=== PATIENT | male | born 1965 | race Caucasian/White ===

== ENCOUNTER → 2017-02-07 | Outpatient (CLI) | payer OTHER ==
[~2017-02-07] MED LIST: HYDR-4330 PO; HYDR25TA4 PO; METO25TA3 PO; OPTIRAY 320 IV PRN; RXC5 PO
--- NOTE | 2017-02-07 07:29 | DIAGNOSTIC IMAGING REPORT ---
CT CERVICAL SPINE WITH CT DOSE: 361.23 mGy.cm CLINICAL HISTORY: Neck pain and radiculopathy. TECHNIQUE: The patient was scanned following administration of 119 cc Optiray 320. COMPARISON STUDY: None. FINDINGS: The prevertebral soft tissues are normal. No acute fractures or subluxations are visualized. There is no pathologic cervical lymphadenopathy. The lung apices are unremarkable in appearance. There are postsurgical changes of a C6 corpectomy and anterior spinal fusion. There is minor bilateral bony foraminal narrowing at the C5-6 level. There is mild bilateral bony foraminal narrowing at the C6-7 level. IMPRESSION: 1. Postsurgical changes of a partial C6 corpectomy and anterior spinal fusion 2. Mild bony foraminal narrowing the C5-6 and C6-7 levels bilaterally Electronically signed by: Angel Balderrama M.D. 02/07/2017 7:28 AM Dictated Date/Time: 02/07/2017 7:24 AM
== END | disposition home or self-care (01) ==
LOC: C.CTS 06:51
PROVIDERS: ATTEND Orthopaedic Surgery Orthopaedic Surgery of the Spine
DX: M54.12 Radiculopathy, cervical region (principal)

== ENCOUNTER 2025-08-11 09:33 | Inpatient (IN) ==
--- NOTE | 2025-07-06 09:32 | PAT Medication Instructions ---
Medication Instructions Date of Service July 06, 2025 Home Medications metoprolol succinate 100 mg tablet,extended release 24 hr 100 mg PO QAM simvastatin 40 mg tablet 40 mg PO HS gabapentin 600 mg tablet 600 mg PO TID PRN Pain methocarbamol 750 mg tablet 750 mg PO TID PRN Pain omeprazole 20 mg tablet,delayed release 20 mg PO QAM tramadol 50 mg tablet 50 mg PO TID Take morning of surgery With a small sip of water, OTHERWISE NOTHING TO EAT OR DRINK AFTER MIDNIGHT: metoprolol succinate 100 mg tablet,extended release 24 hr 100 mg PO QAM gabapentin 600 mg tablet 600 mg PO TID PRN Pain (if needed) methocarbamol 750 mg tablet 750 mg PO TID PRN Pain (if needed) omeprazole 20 mg tablet,delayed release 20 mg PO QAM tramadol 50 mg tablet 50 mg PO TID Take evening before surgery simvastatin 40 mg tablet 40 mg PO HS gabapentin 600 mg tablet 600 mg PO TID PRN Pain (if needed) methocarbamol 750 mg tablet 750 mg PO TID PRN Pain (if needed) tramadol 50 mg tablet 50 mg PO TID Other Notes If you have any questions please call us at [phone] or [phone] or [phone] or [phone]
--- NOTE | 2025-07-13 11:01 | Anesthesiology Consultation ---
Date of Service July 13, 2025 Assessment & Plan (1) Encounter for pre-operative examination: Chart Review Chart Review: Acceptable Risk for Surgery (pending PCP clearance 07/25/25) and Patient seen in Pre Admission Testing - Awaiting PCP clearance 07/25/25 ([facility]) - please send optimization note re: uncontrolled DM and preop testing to PCP for review - Check BSG AM DOS * Hibiclens wash not yet received/discussed with surgeon's office for patient (patient does not have preop appt). Chlorhexidine wipes were given but patient told to continue to try to follow up with surgeon's office regarding Hibiclens wash and if given/received he is to disregard chlorhexidine wipes. Surgeon's office e-mailed to follow up with patient Per PAT appt on 07/13/25, no recent illness/disease exposures, illness related symptoms, or recent illness/disease positive tests. Will leave to surgeon's discretion if preop Covid testing needed Teaching & Discussion Pre-Anesthesia Teaching/Discussion Notes: Instructed NPO after midnight before surgery,except medications with 15 cc of water. Medication instructions provided according to the PAT guidelines. History Surgery Operation Date: 04/16/25 07:45 Proposed Procedures p L4-L5 Decompression and Fusion with Spinal Cord Monitoring - Reuben Roche DO Operation Date: 08/11/25 07:45 Proposed Procedures p L4-L5 Decompression and Fusion - Reuben Roche DO Height/Weight Height: 5 ft 10 in Weight: 117.8 kg Allergies Allergy/AdvReac Type Severity Reaction Status Date / Time amoxicillin [From Augmentin] AdvReac Unknown Diarrhea Verified 07/02/25 11:03 clavulanic acid AdvReac Unknown Diarrhea Verified 07/02/25 11:03 [From Augmentin] morphine AdvReac Unknown all over Verified 07/02/25 11:03 burning sensation feeling Medications Home Medications Medication Instructions Recorded Confirmed Last Taken metoprolol succinate 100 mg 100 mg PO QAM 10/10/20 07/02/25 Unknown tablet,extended release 24 hr simvastatin 40 mg tablet 40 mg PO HS 10/10/20 07/02/25 Unknown gabapentin 600 mg tablet 600 mg PO TID PRN Pain 07/02/25 07/02/25 Unknown methocarbamol 750 mg tablet 750 mg PO TID PRN Pain 07/02/25 07/02/25 Unknown omeprazole 20 mg tablet,delayed 20 mg PO QAM 07/02/25 07/02/25 Unknown release tramadol 50 mg tablet 50 mg PO TID 07/02/25 07/02/25 Unknown Past Medical History Medical History (Updated 07/13/25 @ 11:55 by Ivon Guzman PA-C) Acid reflux well controlled and stable Cervical stenosis of spine hx sx intervention. good ROM Diabetes Not mentioned at PAT appt but Hgb A1C done at PCP office 07/06/25 was 7.8 (pt seeing PCP for preop 07/25/25) History of COVID-19 x2, 2019 and 2021. no hx hospitalization. no residual symptoms History of hemochromatosis No specialist ; follows with PCP Controlled with diet changes No phlebotomies needed since 2021 HTN (hypertension) Hyperlipidemia Spinal stenosis Exercise / Class Metabolic Activity II 4-5 Yardwork/Stairs/Walk up hill (one flight of stairs - no chest pain or SOB ) Past Family History Family History Mother History of colon cancer Past Surgical History Surgical History History of arthroscopy of left knee History of arthroscopy of left shoulder History of arthroscopy of right knee History of arthroscopy of right shoulder History of colonoscopy History of foot surgery right , tendon repair. Hx of fusion of cervical spine [facility] 12-13 yr ago. mild limitation rom. Past Anesthesia History No Hx of Anesthesia Complications and No Family Hx of Anesthesia Complications History of PONV No Hx of PONV and No Hx of Motion Sickness Social History Smoking Status: Never smoker Do You Dip or Chew Tobacco: No (quit in early ) Alcohol type: beer alcohol intake frequency: a few times a month Hx Substance Use: No substance use type: does not use Review of Systems - Hx of occ snoring- no witnessed apnea- no hx of sleep study Patient denies chest pain, shortness of breath, dyspnea on exertion, cough, wheezing, palpitations. No hx of seizures, stroke, [place]. No hx of blood clots or blood transfusions Physical Exam Vital Signs VITALS BP 142/80 P 60 TEMP 98.1 SP02 96% RESP 16 Constitutional no acute distress ENMT Mouth: no TMJ clicking Thyromental Distance: > or= 3.5 Finger Breadths (3.5) Mallampati Class: III Top partial denture (missing two top front teeth) Missing side teeth and molars Neck + short neck, + limited neck extension (mild) and + facial hair (advised to shave/trim) Respiratory normal respiratory effort; no respiratory distress Auscultation: lungs clear to auscultation bilaterally; no wheezes Cardiovascular Rate/Rhythm: regular rate and regular rhythm Heart Sounds: no murmur Vessels: no carotid bruit Musculoskeletal Spine: + pain with cervical ROM (mild) Extremities: extremities normal to inspection Psychiatric Orientation: alert Lab Results Anesthesia Preop Results Results Anesthesia Widget: WBC 8.09 K/ul (4.8-10.8) 07/13/25 Hgb 13.4 g/dl (14.0-18.0) L 07/13/25 Hct 38.7 % (42.0-52.0) L 07/13/25 Plt 193 K/uL (130-400) 07/13/25 Na 133 mmol/L (136-145) L 07/13/25 K 4.2 mmol/L (3.5-5.1) 07/13/25 Cl 99 mmol/L (98-107) 07/13/25 CO2 29 mmol/L (21-32) 07/13/25 BUN 14 mg/dl (6-23) 07/13/25 Creat 0.95 mg/dl (0.6-1.4) 07/13/25 Glucose Level 312 mg/dl (70-99(Fasting)) H* 07/13/25 PT 10.3 Seconds (9.0-12.0) 07/13/25 PTT 25 Seconds (21-31) 07/13/25 INR 1.0 (0.9-1.1) 07/13/25 Urine Color Yellow 07/13/25 Urine Appearance Clear (Clear) 07/13/25 Urine pH 6.0 (4.5-7.5) 07/13/25 Urine Specific [place] 1.020 (1.000-1.030) 07/13/25 Urine Protein Negative (Negative) 07/13/25 Urine Glucose (UA) 2+ (Negative) H 07/13/25 Urine Ketones Negative (Negative) 07/13/25 Urine Blood Negative (Negative) 07/13/25 Urine Nitrite Negative (Negative) 07/13/25 Urine Bilirubin Negative (Negative) 07/13/25 Urine Urobilinogen Negative (Negative) 07/13/25 Urine Leukocyte Esterase Negative (Negative) 07/13/25 Blood Type A Positive 07/13/25 Antibody Screen NEGATIVE 07/13/25 Testing Laboratory Results Critically elevated glucose (lab called to ordering provider); also emailed surgeon's office to inform- will send optimization note to PCP as well. Patient was also informed and encouraged to follow up with Dr. Roche's office and PCP 07/06/25= HGB A1C 7.8 Electrocardiogram Date: 07/13/25 Findings: + SB @ (55bpm) Nonspecific ST abnormality When compared to EKG from Nov 09, 2015- no significant change was found per cardio Chest X-Ray Date: 07/13/25 Findings: + NAD There is a stable prominent left cardiophrenic angle fat pad. Postsurgical changes are visualized cervical spine. Stress Test Date: 09/02/20 Type: nuclear Obesity and increased GI uptake. Good quality study. Normal gated MPI wall motion and EF There are no significant rest ore stress associated MPI defects. No evidence of myocardial ischemia or infarct Low risk study Lexiscan stress EKG was negative for myocardial ischemia
[2025-08-11] MEDS ORDERED: GLYCOPYRROLATE 0.2 MG/ML VIAL ONE (10:00)
[2025-08-11] MEDS ORDERED: ROCURONIUM BROMIDE 10 MG/ML 5 ML VIAL IV ONE (10:00)
[2025-08-11] MEDS ORDERED: LIDOCAINE 2% 2 ML VIAL/AMP(20MG/ML) INFIL ONE (10:00)
[2025-08-11] MEDS ORDERED: DEXAMETHASONE SOD INJ 4 MG/ML VIAL ONE (10:00)
[2025-08-11] MEDS ORDERED: ONDANSETRON INJ 2 MG/ML 2 ML VIAL ONE (10:00)
[2025-08-11] MEDS ORDERED: PROPOFOL IV EMULSION 10 MG/ML 20 ML VIAL IV ONE (10:00)
[2025-08-11] MEDS ORDERED: MIDAZOLAM HCL 1 MG/ML 2ML VIAL ONE (10:01)
[2025-08-11] MEDS: LR 15ML/HR IV SCH (10:02)
[2025-08-11] MEDS: LR 60ML/HR IV SCH (10:02)
[2025-08-11] MEDS: GABAPENTIN 600 MG DOSE PO SCH (10:03)
[2025-08-11] MEDS: CeleBREX 200 MG CAP PO SCH (10:03)
[2025-08-11] MEDS: ACETAMINOPHEN 500 MG TAB PO SCH (10:03)
[2025-08-11] MEDS ORDERED: ONDANSETRON INJ 2 MG/ML 2 ML VIAL IV PRN ×2 (10:53→15:01)
[2025-08-11] MEDS ORDERED: ATROPINE SULFATE 0.1 MG/ML 10ML SYR IV PRN (10:53)
[2025-08-11] MEDS ORDERED: HYDROmorphone INJ 2 MG/ML SYR/VIAL IV PRN (10:53)
--- NOTE | 2025-08-11 11:25 | History & Physical Bridge Note ---
Date of Service August 11, 2025 History & Physical Bridge Note I have examined the patient, reviewed the History & Physical and in the interval since the performance of the History & Physical I have noted the following changes of clinical significance: no changes noted
--- NOTE | 2025-08-11 11:26 | History & Physical Report ---
Date of Service August 11, 2025 Assessment & Plan (1) Other spondylosis with radiculopathy, lumbar region: Plan: L4-L5 decompression and fusion History of Present Illness Chief Complaint: Back and bilateral leg pain Primary Care Provider: ELOISA Patrick This is a 59-year-old male who presents with chronic persistent back and bilateral leg pain after failing course of nonoperative care is here for surgical invention. Allergies Allergy/AdvReac Type Severity Reaction Status Date / Time amoxicillin [From Augmentin] AdvReac Unknown Diarrhea Verified 08/11/25 09:56 clavulanic acid AdvReac Unknown Diarrhea Verified 08/11/25 09:56 [From Augmentin] morphine AdvReac Unknown all over Verified 08/11/25 09:56 burning sensation feeling Home Medications Medication Instructions Recorded Confirmed Type metoprolol succinate 100 mg 100 mg PO QAM 10/10/20 08/11/25 History tablet,extended release 24 hr simvastatin 40 mg tablet 40 mg PO HS 10/10/20 08/11/25 History gabapentin 600 mg tablet 600 mg PO TID PRN Pain 07/02/25 08/11/25 History methocarbamol 750 mg tablet 750 mg PO TID PRN Pain 07/02/25 08/11/25 History omeprazole 20 mg tablet,delayed 20 mg PO QAM 07/02/25 08/11/25 History release metformin 1,000 mg tablet 1,000 mg PO BID 07/29/25 08/11/25 History Past Med/Surg History Problem List (Updated 08/11/25 @ 11:25 by Reuben Roche DO) Other spondylosis with radiculopathy, lumbar region Encounter for pre-operative examination Cervical stenosis of spinal canal Medical History (Updated 08/11/25 @ 11:25 by Reuben Roche DO) Diabetes Not mentioned at PAT appt but Hgb A1C done at PCP office 07/06/25 was 7.8 (pt seeing PCP for preop 07/25/25) Spinal stenosis Cervical stenosis of spine hx sx intervention. good ROM History of COVID-19 x2, 2020 and 2021. no hx hospitalization. no residual symptoms History of hemochromatosis No specialist ; follows with PCP Controlled with diet changes No phlebotomies needed since 2021 Acid reflux well controlled and stable Hyperlipidemia HTN (hypertension) Surgical History History of foot surgery right , tendon repair. History of arthroscopy of left shoulder History of arthroscopy of right shoulder History of arthroscopy of left knee History of arthroscopy of right knee Hx of fusion of cervical spine [facility] 12-13 yr ago. mild limitation rom. History of colonoscopy Family History Mother History of colon cancer Social History Smoking Status: Never smoker Do You Dip or Chew Tobacco: No (quit in early ); Hx Substance Use: No Preferred Language: Dominican Communication Ability: Effective Leaf Sticker Required: No Beliefs That Will Affect Care: None Current Living Situation: Spouse Feels Safe at Home: Yes Assistive Devices: Glasses and Other Assistive Devices Comment: partial upper Physical Exam Physical Exam: Patient is alert and oriented Heart regular rhythm Lungs clear Results & Data Results & Data Vital Signs (Past 12 Hours) Vital Signs Temp Pulse Resp BP Pulse Ox O2 Del Method 08/11/25 09:54 36.9 C 49 L 18 132/68 99 Room Air
[2025-08-11] MEDS ORDERED: SUGAMMADEX SODIUM 200 MG/2 ML VIAL IV ONE (11:51)
[2025-08-11] MEDS: BUPIVACAINE/EPINEPHRINE 0.25% 1:200,000 30 ML VIAL ONE (12:47)
[2025-08-11] MEDS: ceFAZolin 330 MG/ML 1 GM VIAL ONE ×2 (12:49→12:50)
[2025-08-11] MEDS: FLOSEAL HEMOSTATIC MATRIX 10ML TOP ONE (13:22)
--- NOTE | 2025-08-11 13:33 | Operative Report ---
Post Operative Report Pre & Post Diagnosis Operation Date: 08/11/25 11:05 Pre-Op Diagnosis: #1 lumbar spondylosis with radiculopathy #2 lumbar spondylolisthesis #3 lumbar spinal stenosis Post-Op Diagnosis: Same I identified the patient and participated in the time-out.: Yes Procedure Operation Date: 08/11/25 11:05 Actual Procedures #1 lumbar decompression with bilateral medial facetectomies and foraminotomies L3-L4 L4-L5. #2 posterior spinal fusion L4-L5 #3 placed posterior instrumentation L4-L5 #4 interbody fusion L4-L5 #5 placement of Spira 15 x 26 mm x 2 at L4-5. #6 placement of Koros combined with Proteus bone graft in the posterior lateral gutters and os design in the interbody space. #7 application of versa wrap of the exposed dura. Surgeon Reuben Roche, DO Upholstery Covers Inspector Alee Philip Estimated Blood Loss 250 Findings See Below The patient is 5 foot 10 weighing over 113 kg with a BMI in excess of 35. The patient's body habitus required our deepest retractors and longer instruments in order to perform exposed procedure. He had significant epidural veins adding to the difficulty of decompression. This had at least 25% increased operative time. Recommending modifier 22. Specimens None Indications This is a 59-year-old male who presents publish diagnosis of failed course of nonoperative care is here for surgical invention. Description of Procedure Patient was met with identified informed consent obtained. Patient was then ambrocio en to the operative suite underwent intubation placed in a prone position on the Benjamin table top of the David frame. All bony prominences well-padded eyes inspected to ensure no external pressure placed upon them. This point the lumbar spine was prepped and draped in normal sterile fashion. Sharp dissection with assistance of Bovie cautery performed down to and exposing the lamina transverse processes of L4-L5. from a caudal to cephalad fashion complete laminectomy of L4 was performed including bilateral medial facetectomies and foraminotomies addressing severe neural compression. This followed by partial laminectomy of L3 with bilateral medial facetectomies to address all subarticular stenosis. Pedicle screws were then placed at L4-L5 bilaterally with assistance of fluoroscopy and appropriate sized obinna placed. By way of transforaminal approach and right discectomy of L4-L5 was performed endplates corrected to subcortical bleeding bone and a 15 x 26 mm Spira cage tapped into position. Then proceeded to the left transforaminal region at L4-L5. Again discectomy performed. Endplates corrected to subcortical bleeding bone and a second 15 x 26 mm Spira cage tapped into position. Please note all cages were packed with os design bone graft. The rods were then compressed locked in the final position bilaterally. The transverse processes of L4-5 burred to subcortical bleeding bone. Proteus combined with Koros bone graft was placed in the posterolateral gutters. Burst wrap placed of the exposed dura. 15 round KATHARINA drain inserted. The incision was then closed with 1 Vicryl fascia 2-0 Vicryl subcutaneously and 4 Monocryl for final skin closure. Steri-Strips sterile dressing placed. Patient waken taken to PACU in stable condition. Please note Alee Philip was present of the entire procedure and brought the patient positioning complex portion of the surgery and final skin closure. I attest to the content of the Intraoperative Record and any orders documented therein. Any exceptions are noted below.
[2025-08-11] MEDS ORDERED: HYDROmorphone INJ 2 MG/ML SYR/VIAL ONE (13:41)
--- NOTE | 2025-08-11 14:00 | Fluoroscopy Report ---
FL lumbar spine 2-3V CLINICAL HISTORY: L4-L5 DECOM/FUSION COMPARISON STUDY: None FLUOROSCOPY TIME: 10 seconds FLUOROSCOPY IMAGES: 2 EXPOSURE DOSE: 10 mGy FINDINGS: Fluoroscopy was provided for L4-5 fusion. IMPRESSION: Intraoperative fluoroscopy. ACT 112: Negative or not required by law. Electronically signed by: Felix Alanis M.D. 08/11/2025 1:58 PM
--- NOTE | 2025-08-11 14:32 | Anesthesiology Progress Note ---
Date of Service August 11, 2025 Anesthesia Post Procedure Vital Signs Vital Signs: Temp Pulse Pulse Resp BP Pulse Ox O2 Del Method 08/11/25 14:25 57 L 12 102/55 L 92 Room Air 08/11/25 14:15 36.5 C 65 14 96/60 L 95 Room Air 08/11/25 14:05 63 13 96/60 L 99 Oxymask 08/11/25 13:55 73 12 125/72 96 Oxymask 08/11/25 13:48 36.4 C L 75 12 122/67 97 Oxymask 08/11/25 09:54 36.9 C 49 L 18 132/68 99 Room Air O2 Flow Rate 08/11/25 14:25 08/11/25 14:15 08/11/25 14:05 9 08/11/25 13:55 9 08/11/25 13:48 9 08/11/25 09:54 Pain Intensity Back: Pain Intensity: 4 Transfer of Care Handoff Completed per policy Notes Mental Status: alert / awake / arousable Patient Amnestic to Procedure: Yes Nausea / Vomiting: adequately controlled Pain: adequately controlled Airway Patency, RR, SpO2: stable & adequate BP & HR: stable & adequate Hydration State: stable & adequate Anesthetic Complications: no major complications apparent
[2025-08-11] MEDS ORDERED: GABAPENTIN 600 MG TAB PO PRN (15:01)
[2025-08-11] MEDS ORDERED: DO NOT ADMINISTER PNEUMOCOCCAL VACCINE PRN (15:01)
[2025-08-11] MEDS ORDERED: LORazepam Inj 0.5 MG in SYRINGE 0.25 ML IV PRN (15:01)
[2025-08-11] MEDS ORDERED: PROMETHAZINE 12.5 MG/50.5 ML BAG IV PRN (15:01)
[2025-08-11] MEDS ORDERED: LORazepam 0.5 MG TAB PO PRN (15:01)
[2025-08-11] MEDS ORDERED: ALUMINUM/MAGNESIUM SUSP 30 ML UDC PO PRN (15:01)
[2025-08-11] MEDS ORDERED: ONDANSETRON 4 MG OD TAB PO PRN (15:01)
[2025-08-11] MEDS ORDERED: MAGNESIUM HYDROXIDE SUSP 30 ML UDC PO PRN (15:01)
[2025-08-11] MEDS ORDERED: DO NOT ADMINISTER FLU VACCINE PRN (15:01)
[2025-08-11] MEDS ORDERED: HYDROmorphone INJ 0.5 MG/0.5 ML SYR IV PRN (15:01)
[2025-08-11] MEDS ORDERED: NALOXONE HCL 0.4 MG/1 ML VIAL/CARP IV PRN (15:01)
[2025-08-11] MEDS ORDERED: HYDROmorphone INJ 1 MG/ML SYRINGE IV PRN (15:01)
[2025-08-11] MEDS ORDERED: METOCLOPRAMIDE HCL INJ 5 MG/ML 2 ML VIAL IV PRN (15:01)
[2025-08-11] MEDS ORDERED: ACETAMINOPHEN 1,000 MG/100 ML VIAL IV PRN (15:01)
[2025-08-11] MEDS ORDERED: PHARMACY GLYCEMIC MGMT CONSULT PRN (15:01)
[2025-08-11] MEDS ORDERED: FAMOTIDINE 20 MG TAB PO PRN (15:01)
[2025-08-11] MEDS ORDERED: diphenhydrAMINE Capsule 25 MG CAP PO PRN (15:01)
[2025-08-11] MEDS ORDERED: SOD PHOSPHATE/SOD BIPHOSPHATE ENEMA 132 ML BTL PR PRN (15:01)
[2025-08-11] MEDS: SODIUM CHLORIDE 0.9% 1,000 ML IV SCH (15:20)
--- NOTE | 2025-08-11 16:03 | Consultation ---
Date of Consultation August 11, 2025 Assessment & Plan (1) Other spondylosis with radiculopathy, lumbar region: (2) S/P lumbar fusion: (3) Diabetes: (4) HTN (hypertension): (5) Hyperlipidemia: (6) Acid reflux: Plan 59 year old male with PMH significant for type 2 diabetes, hypertension, hyperlipidemia, hemochromatosis, GERD, and lumbar spondylosis with radiculopathy who underwent L4-L5 decompression and fusion on 08/11/[address] Roche. We have been consulted for post operative medical management. Lumbar spondylosis with radiculopathy POD#0 L4-L5 decompression and fusion on 08/11/[address] Roche Activity level, pain control, DVT prophylaxis, bowel regimen, wound/drain care per primary team Encourage incentive spirometer Monitor CBC in am for acute blood loss anemia (preop Hgb 13.4 and EBL 250cc) PT in am Type 2 diabetes Recently started on metformin by PCP for elevated A1C BSG ACHS and SSI while inpatient Glycemic pharmacy consulted Hypertension BP on soft side post op Hold metoprolol in am Monitor BP and resume when able Hyperlipidemia Continue simvastatin GERD Continue PPI DVT Prophylaxis: SCDs/TEDs per primary team Code Status: FULL CODE PCP: Isha AMIN of [facility] Thank you for this consultation. We will continue to follow this patient with you. A member of the [facility] team is available 15/04 via the role in [employer] - please don't hesitate to reach out with questions. Patient seen in collaboration with Dr. Ulloa. Please see addendum. I spent a total of 60 minutes coordinating, documenting and providing care for this patient excluding time spent in the performance of separately billed services or time spent by another provider/QHP. Supervising Physician Co-Signing Physician Notes Attending addendum: The patient was seen and examined in medical floor in presence of the He has history of spondylosis with radiculopathy and underwent L4-L5 decompression and fusion on 08/11/2025 He has been sitting on a chair with minimal pain at the back but no radiation Denies any other significant symptoms On examination No apparent distress at rest Remains hemodynamically stable Chest was clear to auscultation bilaterally HeartS1-S2, regular Abdomenbenign bowel sound present Extremitiestrace edema bilateral His labs and imaging studies reviewed Status post lumbar decompression and fusion as above and remains stable medically His other significant medical conditions remains stable as above Will monitor his labs and also hemodynamics while in the hospital Agree with assessment plan as outlined above by ELOISA Greenberg and take the full responsibility care in the hospital Total time taken to review the chart, medications, examining the patient and discussion with the patient was around [address] Giuliana Ulloa History of Present Illness Requesting Physician: Reuben Roche DO Reason for Consultation: Post operative medical management Attending Physician: Reuben Roche DO History of Present Illness 59 year old male with PMH significant for type 2 diabetes, hypertension, hyperlipidemia, hemochromatosis, GERD, and lumbar spondylosis with radiculopathy who underwent L4-L5 decompression and fusion on 08/11/[address] Roche. We have been consulted for post operative medical management. Patient seen in inpatient room post operatively. Reports some pain in low back. Has feeling in both of his legs which he is excited about as he has not been able to feel his legs in two years. Reports preoperative bilateral leg pain and weakness that was unresponsive to meds and two injections which prompted surgery. Denies dizziness, chest pain, SOB, abdominal pain, N/V. Has not passed gas yet but feels like his bowels are moving. Tolerated getting up to the chair well with assistance from nursing. Allergies Allergy/AdvReac Type Severity Reaction Status Date / Time amoxicillin [From Augmentin] AdvReac Unknown Diarrhea Verified 08/11/25 09:56 clavulanic acid AdvReac Unknown Diarrhea Verified 08/11/25 09:56 [From Augmentin] morphine AdvReac Unknown all over Verified 08/11/25 09:56 burning sensation feeling Home Medications Medication Instructions Recorded Confirmed Type metoprolol succinate 100 mg 100 mg PO QAM 10/10/20 08/11/25 History tablet,extended release 24 hr simvastatin 40 mg tablet 40 mg PO HS 10/10/20 08/11/25 History gabapentin 600 mg tablet 600 mg PO TID PRN Pain 07/02/25 08/11/25 History methocarbamol 750 mg tablet 750 mg PO TID PRN Pain 07/02/25 08/11/25 History omeprazole 20 mg tablet,delayed 20 mg PO QAM 07/02/25 08/11/25 History release metformin 1,000 mg tablet 1,000 mg PO BID 07/29/25 08/11/25 History Patient History Medical History Diabetes Not mentioned at PAT appt but Hgb A1C done at PCP office 07/06/25 was 7.8 (pt seeing PCP for preop 07/25/25) Spinal stenosis Cervical stenosis of spine hx sx intervention. good ROM History of COVID-19 x2, 2019 and 2021. no hx hospitalization. no residual symptoms History of hemochromatosis No specialist ; follows with PCP Controlled with diet changes No phlebotomies needed since 2021 Acid reflux well controlled and stable Hyperlipidemia HTN (hypertension) Surgical History (Updated 08/11/25 @ 16:16 by ELOISA Motley) History of foot surgery right , tendon repair. History of arthroscopy of left shoulder History of arthroscopy of right shoulder History of arthroscopy of left knee History of arthroscopy of right knee Hx of fusion of cervical spine [facility] 12-13 yr ago. mild limitation rom. History of colonoscopy Family History Mother History of colon cancer Social History Smoking Status: Never smoker Do You Dip or Chew Tobacco: No (quit in early ); Hx Substance Use: No Preferred Language: Setswana Communication Ability: Effective Nurseryperson Required: No Beliefs That Will Affect Care: None Current Living Situation: Spouse Feels Safe at Home: Yes Assistive Devices: Glasses and Other Assistive Devices Comment: partial upper Review of Systems Review of Systems: All systems reviewed & are unremarkable except as noted in HPI & below Physical Exam Physical Exam: General/Psych: WD/WN, sitting up in bed, NAD, conversing easily Head: normocephalic, atraumatic Eyes: normal inspection, PERRL, conjunctivae pink ENT: external ear and nose normal, oropharynx normal Neck: normal visual inspection, trachea midline Respiratory: normal respiratory effort, lungs clear to auscultation, no wheeze/rales/rhonchi, no accessory muscle use Cardiovascular: regular rate and rhythm, no murmur/rub/gallop Extremities: no cyanosis or clubbing, normal peripheral pulses, no BLE edema Abdomen/GI: hypoactive bowel sounds, soft, nontender Neurologic/MSK: A+Ox3, motor strength 5/5, moves all extremities, sensation intact BLE Skin: no rashes, normal color, warm and dry, island dressing c/d/i, KATHARINA drain with sanguinous output Results & Data Vital Signs (Past 12 Hours) Vital Signs Temp Pulse Pulse Resp BP Pulse Ox O2 Del Method 08/11/25 15:29 36.3 C L 51 L 18 115/55 L 92 Room Air 08/11/25 15:01 36.6 C 54 L 18 98/55 L 94 Room Air 08/11/25 14:45 53 L 17 98/62 L 92 Room Air 08/11/25 14:35 54 L 12 100/64 90 Room Air 08/11/25 14:25 57 L 12 102/55 L 92 Room Air 08/11/25 14:15 36.5 C 65 14 96/60 L 95 Room Air 08/11/25 14:05 63 13 96/60 L 99 Oxymask 08/11/25 13:55 73 12 125/72 96 Oxymask 08/11/25 13:48 36.4 C L 75 12 122/67 97 Oxymask 08/11/25 09:54 36.9 C 49 L 18 132/68 99 Room Air O2 Flow Rate 08/11/25 15:29 08/11/25 15:01 08/11/25 14:45 08/11/25 14:35 08/11/25 14:25 08/11/25 14:15 08/11/25 14:05 9 08/11/25 13:55 9 08/11/25 13:48 9 08/11/25 09:54 Medications Administered Current Inpatient Medications Acetaminophen (Acetaminophen 500 Mg Tab) 1,000 mg PO PREOP GIO Stop: 08/11/25 18:00 Last Admin: 08/11/25 10:03 Dose: 1,000 mg Acetaminophen (Acetaminophen 500 Mg Tab) 1,000 mg PO Q8H PRN PRN Reason: MILD Pain (1,2,3) & Pre PT Stop: 09/10/25 15:00 Al Hydrox/Mg Hydrox/Simethicone (Aluminum/Magnesium Susp 30 Ml Udc) 30 ml PO Q6H PRN PRN Reason: Dyspepsia Stop: 09/10/25 15:00 Atropine Sulfate (Atropine Sulfate 0.1 Mg/Ml 10ml Syr) 0.5 mg IV Q1M PRN PRN Reason: PACU Use-HR<40 &/or Bradycardi Stop: 08/11/25 18:53 Bisacodyl (Bisacodyl 10 Mg Supp) 10 mg IL DAILY PRN PRN Reason: Constipation Stop: 09/10/25 15:00 Celecoxib (Celebrex 200 Mg Cap) 200 mg PO PREOP GIO Stop: 08/11/25 18:00 Last Admin: 08/11/25 10:03 Dose: 200 mg Dextrose (Dextrose 50% 50 Ml Syringe) 25 - 50 ml IV UD PRN; Protocol PRN Reason: Hypoglycemia Protocol Stop: 09/10/25 16:14 Diphenhydramine HCl (Diphenhydramine Capsule 25 Mg Cap) 25 mg PO Q6H PRN PRN Reason: Allergic Rhinitis/Insomnia Stop: 09/10/25 15:00 Ephedrine Sulfate (Ephedrine Sulfate 50 Mg/Ml Amp) 5 mg IV Q5M PRN PRN Reason: PACU Use Only-SBP<90 mmHg Stop: 08/11/25 18:53 Famotidine (Famotidine 20 Mg Tab) 20 mg PO Q12H PRN PRN Reason: Dyspepsia Stop: 09/10/25 15:00 Fentanyl Citrate (Fentanyl Citrate Pf 100 Mcg/2 Ml Vial) 50 mcg IV Q5M PRN PRN Reason: PACU Use Only-Pain Stop: 08/11/25 18:53 Gabapentin (Gabapentin 600 Mg Dose) 600 mg PO PREOP GIO Stop: 08/11/25 18:00 Last Admin: 08/11/25 10:03 Dose: 600 mg Gabapentin (Gabapentin 600 Mg Tab) 600 mg PO TID PRN PRN Reason: Neuropathic Pain Stop: 09/10/25 15:00 Glucagon (Glucagon For Inj 1 Mg Vial) 1 mg SQ UD PRN; Protocol PRN Reason: Hypoglycemia Protocol Stop: 09/10/25 16:14 Glucose (Glucose 40% Gel 15 Gm Tube) 15 - 30 gm PO UD PRN; Protocol PRN Reason: Hypoglycemia Protocol Stop: 09/10/25 16:14 Glucose (Glucose 10 Tab/Tube) 4 - 8 tab PO UD PRN; Protocol PRN Reason: Hypoglycemia Protocol Stop: 09/10/25 16:14 Hydromorphone HCl (Hydromorphone Inj 2 Mg/Ml Syr/Vial) 0.5 mg IV Q5M PRN PRN Reason: PACU Use Only-Pain Stop: 08/11/25 18:53 Hydromorphone HCl (Hydromorphone Inj 0.5 Mg/0.5 Ml Syr) 0.5 mg IV Q3H PRN PRN Reason: MODERATE Pain(4,5,6)/Pre PT Stop: 08/25/25 15:00 Hydromorphone HCl (Hydromorphone Inj 1 Mg/Ml Syringe) 1 mg IV Q3H PRN PRN Reason: SEVERE Pain (7,8,9,10) Stop: 08/25/25 15:00 Hydroxyzine HCl (Hydroxyzine Hcl 25 Mg Tab) 25 mg PO Q8H PRN PRN Reason: Anxiety Stop: 09/10/25 15:00 Lactated Ringer's (Lr) 1,000 mls @ 60 mls/hr IV .[id number] GIO Stop: 08/11/25 22:39 Last Admin: 08/11/25 10:02 Dose: Not Given Cefazolin Sodium (Ancef 2000mg) 2,000 mg in 15 mls @ 3.75 mls/min IV PREOP GIO; Protocol Stop: 08/11/25 18:00 Lactated Ringer's (Lr) 1,000 mls @ 15 mls/hr IV .Q24H GIO Stop: 08/12/25 05:59 Last Infusion: 08/11/25 11:44 Dose: Infused Sodium Chloride (Nss) 1,000 mls @ 150 mls/hr IV .Q6H40M GIO Stop: 08/14/25 15:00 Last Admin: 08/11/25 15:20 Dose: 150 mls/hr Acetaminophen (Ofirmev) 1,000 mg in 100 mls @ 400 mls/hr IV Q8H PRN PRN Reason: MILD Pain (1,2,3) & Pre PT Stop: 08/12/25 15:02 Cefazolin Sodium (Ancef 2000mg) 2,000 mg in 15 mls @ 3.75 mls/min IV Q8H GIO Stop: 08/14/25 12:03 Promethazine HCl (Phenergan) 12.5 mg in 50.5 mls @ 202 mls/hr IV Q6H PRN PRN Reason: Nausea And Vomiting Stop: 09/10/25 15:00 Lorazepam 0.5 mg/ Syringe 0.5 mls @ 2 mls/min IV Q8H PRN PRN Reason: Sedation/Anxiety Stop: 09/10/25 15:00 Dexamethasone 6 mg/ Syringe 1.5 mls @ 1 mls/min IV DAILY GIO Stop: 08/14/25 09:02 Influenza Virus Vaccine Quadrival (Do Not Administer Flu Vaccine) 1 each N/A PRN PRN PRN Reason: Notification Stop: 09/10/25 15:00 Insulin Aspart (Insulin Aspart Per Unit Charge) 0 units SC ACHS GIO Stop: 09/10/25 16:29 Lorazepam (Lorazepam 0.5 Mg Tab) 0.5 mg PO Q8H PRN PRN Reason: Sedation/Anxiety Stop: 09/10/25 15:00 Magnesium Hydroxide (Magnesium Hydroxide Susp 30 Ml Udc) 30 ml PO Q24H PRN PRN Reason: Constipation Stop: 09/10/25 15:00 Metoclopramide HCl (Metoclopramide Hcl Inj 5 Mg/Ml 2 Ml Vial) 10 mg IV Q6H PRN PRN Reason: Nausea &/or Vomiting Stop: 09/10/25 15:00 Metoprolol Succinate (Metoprolol Succ 50mg Ext Rel Tab) 100 mg PO QAM [facility] Stop: 09/11/25 08:59 Miscellaneous (Carbohydrates For Hypoglycemia ) 15 - 30 gm PO UD PRN PRN Reason: Hypoglycemia Treatment Stop: 09/10/25 16:14 Miscellaneous Information (Pharmacy Glycemic Mgmt Consult) 1 each N/A UD PRN PRN Reason: Consult Stop: 09/10/25 15:00 Naloxone HCl (Naloxone Hcl 0.4 Mg/1 Ml Vial/Carp) 0.1 mg IV Q5M PRN PRN Reason: Oversedation/Resp depression Stop: 09/10/25 15:00 Ondansetron HCl (Ondansetron Inj 2 Mg/Ml 2 Ml Vial) 4 mg IV ONCE PRN PRN Reason: PACU Use Only-Nausea/Vomiting Stop: 08/11/25 18:53 Ondansetron HCl (Ondansetron Inj 2 Mg/Ml 2 Ml Vial) 4 mg IV Q6H PRN PRN Reason: Nausea &/or Vomiting Stop: 09/10/25 15:00 Ondansetron HCl (Ondansetron 4 Mg Od Tab) 4 mg PO Q6H PRN PRN Reason: Nausea Stop: 09/10/25 15:00 Oxycodone HCl (Oxycodone Hcl Ir 5 Mg Tab (Immediate Release)) 5 - 10 mg PO Q4H PRN PRN Reason: MOD/SEV Pain & Pre PT Stop: 08/25/25 15:00 Last Admin: 08/11/25 15:39 Dose: 10 mg Pantoprazole Sodium (Pantoprazole 40 Mg Tab) 40 mg PO QAM [facility] Stop: 09/11/25 08:59 Pneumococcal Polyvalent Vaccine (Do Not Administer Pneumococcal Vaccine) 1 each N/A PRN PRN PRN Reason: Notification Stop: 09/10/25 15:00 Polyethylene Glycol (Polyethylene (Miralax) 17 Gm Pack) 17 gm PO Q6 GIO Stop: 09/11/25 05:59 Senna/Docusate Sodium (Docusate Sodium/Senna 50/8.6mg Tab) 2 tab PO HS GIO Stop: 09/10/25 20:59 Simvastatin (Simvastatin 40 Mg Tab) 40 mg PO HS GIO Stop: 09/10/25 20:59 Sodium Biphosphate/Sodium Phosphate (Sod Phosphate/Sod Biphosphate Enema 132 Ml Btl) 132 ml IL ONE PRN PRN Reason: Constipation Stop: 09/10/25 15:00 Tramadol HCl (Tramadol Hcl 50 Mg Tablet) 50 - 100 mg PO Q4H PRN PRN Reason: MOD/SEV Pain & Pre PT Stop: 09/10/25 15:00
[2025-08-11] MEDS ORDERED: DEXTROSE 50% 50 ML SYRINGE IV PRN (16:15)
[2025-08-11] MEDS ORDERED: GLUCAGON FOR INJ 1 MG VIAL SQ PRN (16:15)
[2025-08-11] MEDS ORDERED: GLUCOSE 10 TAB/TUBE PO PRN (16:15)
[2025-08-11] MEDS ORDERED: CARBOHYDRATES FOR HYPOGLYCEMIA PO PRN (16:15)
[2025-08-11] MEDS ORDERED: GLUCOSE 40% GEL 15 GM TUBE PO PRN (16:15)
[2025-08-11] MEDS: INSULIN ASPART PER UNIT CHARGE SC SCH (17:23)
[2025-08-11] MEDS: DOCUSATE SODIUM/SENNA 50/8.6MG TAB PO SCH (20:17)
[2025-08-11] MEDS: SIMVASTATIN 40 MG TAB PO SCH (20:17)
[2025-08-11] MEDS: LANTUS PER UNIT CHARGE SC ONE (21:26)
[2025-08-12] MEDS: POLYETHYLENE (MIRALAX) 17 GM PACK PO SCH (05:31)
[2025-08-12 06:43] LABS: Hematocrit (blood only) 36.0 % (42.0-52.0); Hemoglobin 12.4 g/dL (14.0-18.0); Immature Granulocytes # (auto) 0.05 K/uL (0.01-0.20); Immature Granulocytes % (auto) 0.4 %; Mean Corpuscular Hemoglobin 29.9 pg (25.0-34.0); Mean Corpuscular Volume 86.7 fL (80.0-100.0); Platelet Count 214 K/uL (130-400); RDW Standard Deviation 37.7 fL (36.4-46.3); Red Blood Count 4.15 M/uL (4.70-6.10); White Blood Count 13.05 K/ul (4.8-10.8)
[2025-08-12 07:13] LABS: Anion Gap 8.0 (3-11); Blood Urea Nitrogen 14.0 mg/dl (6-23); Calcium 9.0 mg/dl (8.6-10.3); Carbon Dioxide 26.0 mmol/L (21-32); Chloride 102.0 mmol/L (98-107); Creatinine Clr Calc Pharmacy 117.9 ml/min; Glucose 171.0 mg/dl (70-99(Fasting)); Potassium 4.1 mmol/L (3.5-5.1); Sodium 136.0 mmol/L (136-145)
[2025-08-12 07:52] LABS: Hemoglobin A1C 8.1 % (4.5-5.6)
--- NOTE | 2025-08-12 08:16 | Orthopedic Progress Note ---
Date of Service August 12, 2025 Assessment & Plan (1) Other spondylosis with radiculopathy, lumbar region: Plan: Sergey is postoperative day 1 status post L4-5 decompression and fusion. He is can start physical therapy today. Maintain KATHARINA drain. DVT prophylaxis is in the form of teds and SCDs. Continue with pain control. Anticipate discharge home within the next 24 to 48 hours. Admission and Anticipated Discharge Date Admission Date: August 11, 2025 Subjective Sergey is postoperative day 1 status post L4-5 decompression and fusion. He had an uneventful evening. Leg pain has resolved. He is up and ambulatory around the hallways in the room. He feels great. KATHARINA drain output last shift is 60 cc. H&H this morning are 12.4 and 36.0 respectively. No other complaints. Review of Systems Review of Systems: All systems reviewed & are unremarkable except as noted in HPI & below Physical Exam Physical Exam: He is sitting in a chair eating breakfast in no acute distress Alert and oriented x 3 Lumbar dressing is clean dry and intact with functioning KATHARINA drain Strength intact bilateral lower extremities Results & Data Vital Signs (Past 12 Hours) Vital Signs Temp Pulse Resp BP Pulse Ox O2 Del Method 08/12/25 03:00 36.9 C 56 L 18 116/64 94 Room Air 08/11/25 23:00 36.7 C 65 18 119/67 94 Room Air
[2025-08-12] MEDS: ACETAMINOPHEN 500 MG TAB PO PRN (08:28)
[2025-08-12] MEDS: dexAMETHasone 6 MG in SYRINGE 0 ML IV SCH (08:29)
[2025-08-12] MEDS ORDERED: METOPROLOL SUCC 50MG EXT REL TAB PO SCH (09:00)
[2025-08-12] MEDS: LANTUS PER UNIT CHARGE SC SCH (12:12)
--- NOTE | 2025-08-12 12:27 | Hospitalist Progress Note ---
Date of Service August 12, 2025 Assessment & Plan (1) Other spondylosis with radiculopathy, lumbar region: (2) S/P lumbar fusion: (3) Diabetes: (4) HTN (hypertension): (5) Hyperlipidemia: (6) Acid reflux: Plan 59 year old male with PMH significant for type 2 diabetes, hypertension, hyperlipidemia, hemochromatosis, GERD, and lumbar spondylosis with radiculopathy who underwent L4-L5 decompression and fusion on 08/11/[address] Roche. We have been consulted for post operative medical management. Lumbar spondylosis with radiculopathy L4-L5 decompression and fusion on 08/11/[address] Roche Activity level, pain control, DVT prophylaxis, bowel regimen, wound/drain care per primary team Encourage incentive spirometer Hemoglobin of 12.4 postoperatively Type 2 diabetes Recently started on metformin by PCP for elevated A1C BSG ACHS and SSI while inpatient Glycemic pharmacy consulted Hypertension BP on soft side post op continue to Hold metoprolol Monitor BP and resume when able Hyperlipidemia Continue simvastatin GERD Continue PPI DVT Prophylaxis: SCDs/TEDs per primary team Code Status: FULL CODE PCP: Isha [facility]IN of [facility] Please note the above document was generated using voice recognition software. It may contain grammatical, syntax or spelling errors. Any formal questions or concerns about the content, text or information contained within the body of this dictation should be directly addressed to the provider for clarification Admission and Anticipated Discharge Date Admission Date: August 11, 2025 Subjective Patient seen and examined at bedside. He is sitting up on a chair comfortably; not in distress. He denies any pain or discomfort at this time Tolerating diet well Review of Systems Review of Systems: All systems reviewed & are unremarkable except as noted in Subjective Physical Exam Physical Exam: General/Psych: WD/WN, sitting up in bed, NAD, conversing easily Respiratory: normal respiratory effort, lungs clear to auscultation, no wheeze/rales/rhonchi, no accessory muscle use Cardiovascular: regular rate and rhythm, no murmur/rub/gallop Extremities: no cyanosis or clubbing, normal peripheral pulses, no BLE edema Abdomen/GI: hypoactive bowel sounds, soft, nontender Neurologic/MSK: A+Ox3, motor strength 5/5, moves all extremities, sensation intact BLE Skin: Dressing in place in the back; no overlying soakage. Results & Data Results & Data Vital Signs (Past 12 Hours) Vital Signs Temp Pulse Resp BP Pulse Ox O2 Del Method 08/12/25 11:07 36.5 C 55 L 16 116/65 95 Room Air 08/12/25 07:35 36.5 C 52 L 16 110/63 96 Room Air 08/12/25 03:00 36.9 C 56 L 18 116/64 94 Room Air
--- NOTE | 2025-08-12 14:53 | Pharmacy Report ---
Pharmacy Glycemic Short Note 2 - Date of Service August 12, 2025 - Glycemic Short BSG Results (Last 24 hours): 08/11/25 08/11/25 08/12/25 16:48 20:23 05:48 Glucose 171 H POC Glucose 269 H 287 H 08/12/25 08/12/25 07:32 11:28 Glucose POC Glucose 182 H 168 H OUTPATIENT ANTIDIABETIC REGIMEN: * metformin 1000mg po BID * Jardiance 25mg po daily HbA1c: 8.1% on 08/12/25 ASSESSMENT: * ROHAN is a 59 year old male who was admitted yesterday for spinal decompression and fusion. Pharmacy was consulted for glycemic management postop. * Preop BSG was 162mg/dL and postop was 269mg/dL. He did receive 8mg iv dexamethasone in the OR. Lantus 20 units SQ x 1 was given and a weight based bolus insulin regimen with a stress of 2 was started. * Fasting BSG was 182mg/dL and dexamethasone 6mg iv daily X 3 days was ordered to start this morning so Lantus 10 units SQ daily was ordered. * Will continue current bolus insulin regimen without change for now. PLAN FOR INPATIENT GLYCEMIC CONTROL: * Hold outpatient oral diabetes medications * Basal insulin * Lantus 20 units SQ x 1 post op 08/11, then Lantus 10 units SQ daily. * Bolus insulin * NovoLog per scale ACHS or Q6hrs while NPO * Goal Range: Low 110 mg/dL - High 140 mg/dL * Correction Factor: 20 mg/dL/unit * Nutritional / Prandial insulin per carb ratio of 1 unit per 7 grams CHO consumed
[2025-08-13 07:43] VITALS: BP 119/74; RESP 16; TEMP 97.7; O2SAT 97
[2025-08-13] MEDS: LANTUS PER UNIT CHARGE SC SCH (08:58)
--- NOTE | 2025-08-13 10:45 | Discharge Summary ---
Date of Service August 13, 2025 Admission HPI Per Admitting Provider This is a 59-year-old male who presents with chronic persistent back and bilateral leg pain after failing course of nonoperative care is here for surgical invention. Principal Diagnosis Lumbar spondylosis with radiculopathy Discharge Data Allergies Allergy/AdvReac Type Severity Reaction Status Date / Time amoxicillin [From Augmentin] AdvReac Unknown Diarrhea Verified 08/11/25 09:56 clavulanic acid AdvReac Unknown Diarrhea Verified 08/11/25 09:56 [From Augmentin] morphine AdvReac Unknown all over Verified 08/11/25 09:56 burning sensation feeling Consultations 08/11/25 15:01 Consult Hospitalist Routine Procedures Performed Operation Date: 08/11/25 11:05 Actual Procedures p L4-L5 Decompression and Fusion(Not Applicable) - Reuben Roche DO Ordered Studies 08/11/25 [place] lumbar spine 2-3V Routine Hospital Course (1) Other spondylosis with radiculopathy, lumbar region: Patient with lumbar decompression fusion tolerated this well was taken to orthopedic for postoperative. Postop he progressed appropriate. Marked improvement of his back and leg symptoms. Pain controlled. Excellent strength testing. KATHARINA drain decreasing. Subsidy discharged home. Discharge orders and instructions from the chart for further review. Total Time Total Time Spent Total Time Spent (In Minutes): 20 minutes Discharge Plan Discharge Items Patient Disposition: Home - Self-Care Reason For Visit: Single-Level Lumbosacral Spondylosis with Radiculo Discharge Diagnosis: Lumbar spondylosis with radiculopathy Activity: As commented below Non-emergency contact: Primary Care Provider Call non-emergency contact if: you have any medication questions Follow-up/Referrals: Isha Prieto CRNP [Primary Care Provider] - Diet: Regular Addtl Attending Provider Instructions: ACTIVITY RECOMMENDATIONS: SELF CARE INSTRUCTIONS AFTER THORACIC/LUMBAR FUSIONS 1. You may walk to your tolerance. It is good exercise for your legs and back. Expect some back and intermittent leg aches and pains. 2. You may perform "counter-top" level activities (make a sandwich, tommy with a project, etc.). 3. No bending or lifting of more than 10 pounds or back twisting of any nature (roll like a log when turning in bed). 4. You may ride in a car for 20-30 minutes at a time. No driving until after your first visit with your doctor. 5. Frequent changes of position and restricting sitting to 30 minutes at a time will help limit the amount of back spasms and stiffness you may experience. 6. You may discontinue the use of ambulatory aids (cane, crutches, etc.) once your strength and confidence allow. 7. You may epic trainer the shower and let water strike your incision when you arrive home at least once daily. Do not take a tub bath, sit in a hot tub or go into a swimming pool until after your first recheck in the office. 8. You may resume previous diet. SPECIAL CARE INSTRUCTIONS: VERY IMPORTANT TO READ AND REVIEW A. Your surgical incision has been closed with a cosmetic suture under the skin that will dissolve in about 6 weeks. In 14 days, you can use a pair of clean scissors and cut the suture that is left outside of the skin at the ends of your incision. 1. The small skin tapes can be removed 7 days after surgery if they have not fallen off by that point. 2. You may keep the wound open to air as much as possible to promote healing after post-op day number 5 unless told otherwise by your doctor. 3. If you think the wound looks like it is becoming infected (redness or worsening drainage) and/or you are experiencing fever, chill or worsening back pain and muscle spasms, contact the office so that we may evaluate you as soon as possible. B. Complications are uncommon, but please contact us if you have any signs or symptoms of: 1. wound infection (fever higher than 102.5 degrees F, redness, separation of wound, drainage, or increasing pain from the incision) 2. blood clots in legs (pain, swelling, redness and warmth in legs) 3. urinary tract infection (fever higher than 102.5 degrees F, burning upon urination or increased frequency of urination) 4. nerve problems (inability to walk on your toes or heels, numbness, loss of bowel or bladder control) 5. any other symptoms that concern you C. Please call the office at if you have any concerns or questions about your operation or recovery. D. No smoking! Smoking drastically decreases the chance of a solid fusion. E. Do not take any anti-inflammatory medications (Indocin, Advil, Motrin, Aspirin, Naprosyn, etc.) as these may inhibit the chance of a solid fusion. Tylenol is okay to take for pain. MANAGING PAIN AFTER SPINAL SURGERY 1. Narcotic medication is intended for short-term use and will be provided for surgical pain. Surgical pain usually lasts for a period of 4-6 weeks. Narcotic medication includes Percocet, Vicodin, Darvocet, Tylenol #3 or Lortab. 2. Longer-term pain is more appropriately treated with non-narcotic medication such as Tylenol ES. 3. Muscle spasm is not appropriately treated with narcotics. Muscle relaxers such as Soma, Flexeril or Skelaxin can be used along with Tylenol ES. 4. Remember that we all live with some "aches and pains". This is not unusual or uncommon after an injury or as we get older. a. Back pain is expected and may include muscle spasms for [address] surgery[address] The pain should gradually improve. If the pain worsens for no apparent reason, please contact the office. b. Intermittent leg pain may also be experienced and should not be concerned about unless it worsens for no apparent reason. If so, please contact the office. 5. We will provide appropriate medication within the normal guidelines of their prescribed use. We will also be very cautious and aware of potential abuse and extended duration of patients' medication needs. a. Pain medications are for your comfort and to assist with sleep and rest so that the tissue can heal. They are not provided in order to return to normal activity and should not be used through the day. To do so or worsening pain at night can result from ongoing tissue damage and development of tolerance to the prescribed medicine. 6. Please allow 2-3 days to process refills. Prescriptions will not be mailed but must be picked up at the office. FOLLOW UP VISIT: Keep your scheduled follow-up appointment. Any questions, please call the office at . Pending Studies at Discharge: No Stand-Alone Forms: My [employer], Smoking Cessation Medications and DC Order Prescriptions: New tramadol 50 mg tablet 50 mg PO Q6H PRN (Reason: pain, moderate) Qty: 30 0RF oxycodone 5 mg tablet 5 mg PO Q6H PRN (Reason: pain) Qty: 30 0RF Rx Instructions: Oxycodone for severe pain tramadol for moderate pain Continued metoprolol succinate 100 mg tablet extended release 24 hr 100 mg PO QAM simvastatin 40 mg tablet 40 mg PO HS omeprazole 20 mg Tablet,Delayed Release (Dr/Ec) 20 mg PO QAM gabapentin 600 mg Tablet 600 mg PO TID PRN (Reason: Pain) methocarbamol 750 mg Tablet 750 mg PO TID PRN (Reason: Pain) metformin 1,000 mg Tablet 1,000 mg PO BID Discharge Orders: Discharge Order (Routine); Ordered 08/13/25 Ordered By: Reuben Castro/Other Patient Handouts: Managing Type 2 Diabetes Admission Data Admit Date/Time: 08/11/25 13:36 Attending Provider: Reuben Roche Admit Provider: Reuben Roche Primary Care Provider: Isha Prieto Other Providers: Rhonda Ulloa
--- NOTE | 2025-08-13 11:22 | Hospitalist Progress Note ---
Date of Service August 13, 2025 Assessment & Plan (1) Other spondylosis with radiculopathy, lumbar region: (2) S/P lumbar fusion: (3) Diabetes: (4) HTN (hypertension): (5) Hyperlipidemia: (6) Acid reflux: Plan 59 year old male with PMH significant for type 2 diabetes, hypertension, hyperlipidemia, hemochromatosis, GERD, and lumbar spondylosis with radiculopathy who underwent L4-L5 decompression and fusion on 08/11/[address] Roche. We have been consulted for post operative medical management. Lumbar spondylosis with radiculopathy L4-L5 decompression and fusion on 08/11/[address] Roche Activity level, pain control, DVT prophylaxis, bowel regimen, wound/drain care per primary team Encourage incentive spirometer Hemoglobin of 12.4 postoperatively Type 2 diabetes Recently started on metformin by PCP for elevated A1C BSG ACHS and SSI while inpatient BG within good control Hypertension BP on soft side post op continue to Hold metoprolol resume at home; follow up with PCP Hyperlipidemia Continue simvastatin GERD Continue PPI DVT Prophylaxis: SCDs/TEDs per primary team Code Status: FULL CODE PCP: Isha [facility]IN of [facility] Please note the above document was generated using voice recognition software. It may contain grammatical, syntax or spelling errors. Any formal questions or concerns about the content, text or information contained within the body of this dictation should be directly addressed to the provider for clarification Admission and Anticipated Discharge Date Admission Date: August 11, 2025 Subjective Patient seen and examined at bedside. Comfortable; not in distress. Denies fever, chills, chest pain, shortness of breath, abdominal pain or urinary symptoms. No significant overnight events Review of Systems Review of Systems: All systems reviewed & are unremarkable except as noted in Subjective Physical Exam Physical Exam: General/Psych: WD/WN, sitting up in bed, NAD, conversing easily Respiratory: normal respiratory effort, lungs clear to auscultation, no wheeze/rales/rhonchi, no accessory muscle use Cardiovascular: regular rate and rhythm, no murmur/rub/gallop Extremities: no cyanosis or clubbing, normal peripheral pulses, no BLE edema Abdomen/GI: hypoactive bowel sounds, soft, nontender Neurologic/MSK: A+Ox3, motor strength 5/5, moves all extremities, sensation intact BLE Skin: Dressing in place in the back; no overlying soakage. Results & Data Results & Data Vital Signs (Past 12 Hours) Vital Signs Temp Pulse Resp BP Pulse Ox O2 Del Method 08/13/25 07:42 36.5 C 51 L 16 119/74 97 Room Air 08/12/25 23:21 36.7 C 52 L 18 133/76 96 Room Air
--- NOTE | 2025-08-13 11:38 | Pharmacy Report ---
Pharmacy Glycemic Short Note 2 - Date of Service August 13, 2025 - Glycemic Short BSG Results (Last 24 hours): 08/12/25 08/12/25 08/13/25 16:22 20:19 07:41 POC Glucose 203 H 254 H 162 H 08/13/25 11:22 POC Glucose 148 H OUTPATIENT ANTIDIABETIC REGIMEN: * metformin 1000mg po BID * Jardiance 25mg po daily HbA1c: 8.1% on 08/12/25 ASSESSMENT: 08/13: * Sergey received a total of 44 units of insulin yesterday (10 units were basal and 34 units were bolus). BSGs were all above goal yesterday. * Fasting BSG was 162mg/dL this morning. Lantus dose was increased and CR of bolus insulin was tightened. * He continues on dexamethasone 6mg iv daily (last dose scheduled for tomorrow morning). 08/12: * ROHAN is a 59 year old male who was admitted yesterday for spinal decompression and fusion. Pharmacy was consulted for glycemic management postop. * Preop BSG was 162mg/dL and postop was 269mg/dL. He did receive 8mg iv dexamethasone in the OR. Lantus 20 units SQ x 1 was given and a weight based bolus insulin regimen with a stress of 2 was started. * Fasting BSG was 182mg/dL and dexamethasone 6mg iv daily X 3 days was ordered to start this morning so Lantus 10 units SQ daily was ordered. * Will continue current bolus insulin regimen without change for now. PLAN FOR INPATIENT GLYCEMIC CONTROL: * Hold outpatient oral diabetes medications * Basal insulin * Lantus 15 units SQ daily. * Bolus insulin * NovoLog per scale ACHS or Q6hrs while NPO * Goal Range: Low 110 mg/dL - High 140 mg/dL * Correction Factor: 20 mg/dL/unit * Nutritional / Prandial insulin per carb ratio of 1 unit per 6 grams CHO consumed
[2025-08-13 12:36] VITALS: PULSE 58
== END 2025-08-13 13:44 | disposition home or self-care (01) | DRG 402 ==
LOC: ASU 09:33 → 3E 13:36
DX: K21.9 Gastro-esophageal reflux disease without esophagitis; E11.9 Type 2 diabetes mellitus without complications; Z88.5 Allergy status to narcotic agent; M47.26 Other spondylosis with radiculopathy, lumbar region; M43.16 Spondylolisthesis, lumbar region; I10 Essential (primary) hypertension; E83.119 Hemochromatosis, unspecified; Z88.1 Allergy status to other antibiotic agents; Z79.84 Long term (current) use of oral hypoglycemic drugs; E78.5 Hyperlipidemia, unspecified; M48.061 Spinal stenosis, lumbar region without neurogenic claudication